=== PATIENT | female | born 1990 | race Caucasian/White ===

== ENCOUNTER 2022-04-29 16:27 | Inpatient (IN) ==
[2022-04-29] MEDS ORDERED: Lactated Ringers 1000 ml BAG 1,000 ML IV ONE (16:42)
[2022-04-29] MEDS ORDERED: Buffered Lidocaine 1% SYRIN 1 ml INTRADERM ONE (16:42)
[2022-04-29] MEDS ORDERED: Lactated Ringers 1000 ml BAG 1,000 ML IV SCH ×2 (17:00→19:00)
[2022-04-29 17:15] LABS: ABS Lymphocytes 1.1 10^3/ul (1.0-4.8); ABS Monocytes 0.5 10^3/ul (0-0.8); ABS Neutrophils 5.8 10^3/ul (1.5-7.7); Eosinophil % 0.1 %; Hematocrit 30 % (35-47); Hemoglobin 9.2 g/dL (12.0-16.0); Lymphocyte % 14.9 %; Mean Corpuscular HGB Conc 31 g/dL (31-36); Mean Corpuscular Hemoglobin 23 pg (27-31); Mean Corpuscular Volume 76 fL (80-97); Nucleated Red Blood Cells % 0.1; Platelet Count 227 10^3/uL (150-450); Red Blood Count 3.96 10^6 /uL (3.70-4.87); Red Cell Distribution Width 17 % (10-15); White Blood Count 7.4 10^3/uL (3.5-10.8)
[2022-04-29 17:39] LABS: Urine Benzodiazepine Screen None Detected (None Detect); Urine Cannabinoids Screen None Detected (None Detect); Urine Opiates Screen None Detected (None Detect)
[2022-04-29] MEDS ORDERED: Oxytocin in LR 20,000 MILLI.UNIT/1,000 ML BAG IV ONE (18:17)
[2022-04-29] MEDS ORDERED: Witch Hazel PAD JAR TOPICAL PRN (18:30)
[2022-04-29] MEDS ORDERED: Dibucaine 1% OINT 28.35 GM TUBE PR PRN (18:30)
[2022-04-29] MEDS ORDERED: Oxytocin in LR 20,000 MILLI.UNIT/1,000 ML BAG IV SCH (18:30)
[2022-04-30 06:12] LABS: ABS Monocytes 0.6 10^3/ul (0-0.8); ABS Neutrophils 5.6 10^3/ul (1.5-7.7); Eosinophil % 0.4 %; Hematocrit 29 % (35-47); Lymphocyte % 24.2 %; Mean Corpuscular HGB Conc 31 g/dL (31-36); Mean Corpuscular Hemoglobin 24 pg (27-31); Mean Corpuscular Volume 75 fL (80-97); Mean Platelet Volume 8.6 fL (7.4-10.4); Nucleated Red Blood Cells % 0.1; Platelet Count 208 10^3/uL (150-450); Red Blood Count 3.84 10^6 /uL (3.70-4.87); Red Cell Distribution Width 18 % (10-15); White Blood Count 8.3 10^3/uL (3.5-10.8)
[2022-04-30 16:01] VITALS: BP 111/70
== END 2022-04-30 19:11 | disposition home or self-care (01) | DRG 560 ==
LOC: MCHOBOUT 16:27 → MCHOB 16:40
PROVIDERS: ADMIT Midwife; ATTEND Midwife